=== PATIENT | female | born 1990 | race Two or more races ===

== ENCOUNTER 2022-08-26 20:29 | Emergency (ER) | payer OTHER ==
[~2022-08-26] VITALS: Ht 157.5 cm; Wt 54.4 kg
== END 2022-08-26 23:52 | disposition home or self-care (01) ==
LOC: ER 20:29
DX: S91.012A Laceration without foreign body, left ankle, initial encounter (principal); W25.XXXA Contact with sharp glass, initial encounter; Y93.9 Activity, unspecified; Y92.9 Unspecified place or not applicable